=== PATIENT | male | born 1955 | race Caucasian/White ===

== ENCOUNTER 2021-06-18 12:51 | Emergency (ER) | payer MEDICARE ==
[~2021-06-18] VITALS: Ht 175.3 cm; Wt 86.2 kg
[2021-06-18 12:51] VITALS: BP_SYST 200
[2021-06-18] MEDS ORDERED: NACL 0.9% 2,000 ML IV ONE (13:30)
[2021-06-18] MEDS ORDERED: LORazepam 2 MG/ML VIAL IVP ONE ×2 (13:30→15:00)
[2021-06-18 13:41] LABS: BASOPHILS % (AUTO) 0.5 % (0.0-2.0); HEMATOCRIT 46.6 % (36-54); HEMOGLOBIN 16.2 g/dL (14.0-18.0); LYMPHOCYTES % (AUTO) 9.9 % (20.5-51.5); MEAN CORPUSCULAR HEMOGLOBIN 30 pg (27-31); MEAN CORPUSCULAR HGB CONC 35 % (32-36); MEAN CORPUSCULAR VOLUME 87 fL (79.0-98.0); MONOCYTES # (AUTO) 0.4 K/uL (0.0-1.0); MONOCYTES % (AUTO) 4.2 % (1.7-9.3); NEUTROPHILS # (AUTO) 8.4 K/uL (1.8-7.7); NEUTROPHILS % (AUTO) 85.4 % (40.0-70.0); PLATELET COUNT (AUTO) 254 K/uL (130-430); RED BLOOD CELL COUNT(AUTO) 5.33 MIL/uL (4.2-6.2); RED CELL DISTRIBUTION WIDTH 13.5 % (9.0-15.0); WHITE BLOOD COUNT (AUTO) 9.8 K/uL (4.8-10.8)
[2021-06-18] MEDS ORDERED: cloNIDine HCL 0.1 MG TABLET PO ONE (14:00)
[2021-06-18 14:05] LABS: ANION GAP 15 (5-15); CALCIUM 8.7 mg/dL (8.4-11.0); CHLORIDE 98 mmol/L (98-107); CREATININE 1.41 mg/dL (0.55-1.30); GLUCOSE 181 mg/dL (70-99); POTASSIUM 3.7 mmol/L (3.5-5.1); SODIUM SERUM 139 mmol/L (136-145); UREA NITROGEN, BLOOD 21 mg/dL (8-21)
[2021-06-18 14:08] LABS: GFR AFRICAN AMERICAN 65 mL/min (>90)
[2021-06-18 14:10] LABS: ALANINE AMINOTRANSFERASE 53 U/L (12-78); ALBUMIN 4.4 g/dL (3.4-4.8); ASPARTATE AMINOTRANSFERASE 26 U/L (10-37); TOTAL BILIRUBIN 0.9 mg/dL (0.0-1.0)
[2021-06-18 14:25] LABS: ACETONE, SERUM NEGATIVE (NEGATIVE)
[2021-06-18] MEDS ORDERED: ONDANSETRON HCL 4 MG/2 ML VIAL IVP ONE (15:00)
[2021-06-18] MEDS ORDERED: NACL 0.9% 1,000 ML IV ONE (15:00)
[2021-06-18] MEDS ORDERED: PANTOPRAZOLE SODIUM 40 MG/VIAL (PROTONIX) IVP ONE (15:00)
[2021-06-18] MEDS ORDERED: ONDANSETRON HCL 4 MG/2 ML VIAL ONE (15:10)
[2021-06-18] MEDS ORDERED: amLODIPine BESYLATE 5 MG TABLET PO ONE (15:45)
[2021-06-18] MEDS ORDERED: ONDA-8 TL (17:00)
[2021-06-18] MEDS ORDERED: PRO40 PO (17:00)
[2021-06-18] MEDS ORDERED: cloNIDine HCL 0.1 MG TABLET ONE (18:10)
[2021-06-18 18:21] VITALS: BP_SYST 170
== END 2021-06-18 18:21 | disposition home or self-care (01) ==
LOC: SED 12:51
DX: F10.239 Alcohol dependence with withdrawal, unspecified (principal); Z79.899 Other long term (current) drug therapy; Y90.9 Presence of alcohol in blood, level not specified
CPT/HCPCS: 36415; 71045; 80053; 82009; 82550; 83605; 85025; 93005; 96361; 96374; 96375; 96376; 99285; C9113; J2060; J2405; J7030